=== PATIENT | female | born 1950 | race Caucasian/White ===

== ENCOUNTER 2021-09-23 02:35 | Emergency (ER) | payer MEDICARE, OTHER, SELFPAY ==
[2021-09-23 02:39] VITALS: BP 150/71; PULSE 51; RESP 16; TEMP 36.7; O2SAT 98; BMI 31.7
--- NOTE | 2021-09-23 03:06 | XRR_ITS ---
PROCEDURE INFORMATION: Exam: XR Chest Exam date and time: 09/23/2021 3:06 AM Age: 71 years old Clinical indication: Pain; On breathing; Additional info: Epigastric pain TECHNIQUE: Imaging protocol: XR of the chest. Views: 1 view. COMPARISON: No relevant prior studies available. FINDINGS: Lungs: Unremarkable. No consolidation. Pleural spaces: Unremarkable. No pleural effusion. No pneumothorax. Heart/Mediastinum: Unremarkable. No cardiomegaly. Bones/joints: Degenerative changes of the spine seen. XR/XR chest 1V portable [id number] IMPRESSION: No evidence of active cardiopulmonary disease. Radiation Dose CTDIVOL = (mGy): DLP = (mGy-cm)
--- NOTE | 2021-09-23 03:06 | ECG_ITS ---
[facility] Test Date: 2021-09-23 Pat Name: Blaire Reynoso Department: Room: Gender: Female Heel Splitter: : 1950 Requested By: Juan Alonzo Order Number: [id number] Reading MD: LIONEL SANDERS Measurements Intervals [place] Rate: 53 P: 21 [place]: 210 QRS: 6 QRSD: 99 T: 87 QT: 443 QTc: 419 Interpretive Statements SINUS BRADYCARDIA WITH FIRST DEGREE AV BLOCK INTERPRETATION BASED ON A DEFAULT AGE OF 40 YEARS No previous ECG available for comparison Electronically Signed On 09-24-2021 12:54:18 SACK FILLER by LIONEL SANDERS [id number]
--- NOTE | 2021-09-23 03:34 | W.ED.ABDPA2 ---
HPI - Abdominal Pain General: Chief Complaint: Abdominal Pain Stated Complaint: Epigastric Pain, Near Syncope Time Seen by Provider: 09/23/21 03:04 History of Present Illness: HPI narrative: 71-year-old female who awoke sometime around 1 AM with epigastric pain. She states the pain was quite intense. She then began to have tingling in her arms, and feel as if she was in a pass out. She went to the bathroom, but did not have a bowel movement. She was nauseated, but did not throw up. He continued to have pain, so her brought her to the emergency room. On the way here the pain seemed to resolve. Currently she is not symptomatic she did become diaphoretic with the pain. She was not short of breath. She has a surgical history of cholecystectomy, bowel obstruction with resection, and hysterectomy MD elicited complaint: abdominal pain Onset (ago): hour(s) Pain Consistency: now resolved Location: Epigastric Severity: severe Quality: cramping and aching Radiation: none Migration to: no migration Exacerbating factors: nothing Relieving factors: nothing Associated Symptoms: Reports nausea; Denies belching, bloating, change in stool character, constipation, diarrhea, dyspepsia, dysuria, fever(s), hematochezia and vomiting Review of Systems Const: Denies: fever(s) Card: Denies: chest pain or palpitations Resp: Denies: dyspnea, productive cough or non-productive cough GI: Reports: nausea; Denies: vomiting, diarrhea, constipation, bloating, belching, change in stool character or hematochezia : Denies: dysuria Physical Exam Const: COMMON NORMALS: no acute distress, patient oriented x3 and alert GENERAL APPEARANCE: cooperative HENMT: COMMON NORMALS: normocephalic HEAD & SCALP: normocephalic Eye: COMMON NORMALS: Equal, round and reactive pupils present PUPIL: Yes Equal, round and reactive pupils present Chest: COMMONS NORMALS: normal inspection of the chest Resp: COMMON NORMALS: normal respiratory effort, No use of accessory muscles and clear to auscultation bilaterally AUSCULTATION: clear to auscultation bilaterally Cardio: COMMON NORMALS: regular rate and regular rhythm RATE: regular rate RHYTHM: regular rhythm GI: COMMON NORMALS: Normal to inspection, nondistended, normoactive bowel sounds present, Soft to palpation and non-tender PALPATION: Yes Soft to palpation Neuro: COMMON NORMALS: patient oriented x3 SENSORIUM/ORIENTATION: Yes alert Course Vital Signs: Vital signs: Vital Signs Temperature 98.0 F 09/23/21 02:39 Pulse Rate 51 L 09/23/21 02:39 Respiratory Rate 16 09/23/21 02:39 Blood Pressure 150/71 09/23/21 02:39 Pulse Oximetry 98 09/23/21 02:39 MDM - Abdominal Pain MDM Narrative: Medical decision making narrative: 71-year-old female his pain resolved prior to arrival. Her belly is nontender. Her EKG shows a normal sinus rhythm with first-degree AV block and no acute ST changes. [place] is normal. Her first troponin is 6. White blood cell count is 6. Hemoglobin 12. CMP is essentially normal. Her lipase is normal. She does not have a gallbladder chest x-ray is negative. With resolution of her symptoms, she will be allowed home. She had pain for 2 to 3 hours prior to arrival, so she should have an elevation in her troponin if this was an atypical angina type presentation. Lab Data: Labs: Lab Results 09/23/21 09/23/21 09/23/21 03:04 03:04 03:04 WBC 6.2 10^3/uL 10^3/ uL (4.0-10.0) RBC 3.99 10^6/uL L 10 ^6/uL (4.1-5.3) Hgb 12.1 g/dL g/dL (11.5-15.3) Hct 38.4 % % (37.0-47.0) MCV 96.2 fl fl (81-99) MCH 30.3 pg pg (28.0-34.0) MCHC 31.5 g/dL g/dL (30.0-36.0) RDW 12.9 % % (12.1-15.1) Plt Count 172 10^3/cmm 10^3 /cmm (130-400) MPV 10.4 fL fL (7.4-10.4) Neut % (Auto) 39.3 % % Lymph % (Auto) 50.1 % % [place] % (Auto) 6.3 % % Eos % (Auto) 3.0 % % Baso % (Auto) 0.8 % % Neut # (Auto) 2.45 10^3/uL 10^3 /uL (1.8-7.7) Lymph # (Auto) 3.1 10^3/uL 10^3/ uL (0.8-4.8) [place] # (Auto) 0.4 10^3/uL 10^3/ uL (0.2-0.9) Eos # (Auto) 0.2 10^3/uL 10^3/ uL (0.0-0.8) Baso # (Auto) 0.1 10^3/uL 10^3/ uL (0.0-0.1) Nucleated RBC % (a uto) 0 % % Nucleated RBCs # 0.0 /100WBC /100W BC Sodium 142 mmol/L mmol/L (136-145) Potassium 3.7 mmol/L mmol/L (3.5-5.1) Chloride 106 mmol/L mmol/L (98-107) Carbon Dioxide 23 mmol/L mmol/L (22-29) Anion Gap 16.7 (5-19) BUN 19 mg/dL mg/dL (8-23) Creatinine 0.8 mg/dL mg/dL (0.5-0.9) GFR Calculation Not Reportable Glucose 104 mg/dL mg/dL (65-115) Calculated Osmolal ity 297 mOsm/kg H mOs m/kg (285-295) Calcium 8.8 mg/dL mg/dL (8.5-10.5) Total Bilirubin 0.2 mg/dL mg/dL (0.15-1.2) AST 19 U/L U/L (0-32) ALT 9 U/L U/L (0-33) Alkaline Phosphata se 96 IU/L IU/L (35-105) Troponin T Baselin e 6 ng/L ng/L (0-10) NT-Pro-B Natriuret Pep 91 pg/mL pg/mL (0-125) Total Protein 6.1 g/dL L g/dL (6.6-8.7) Albumin 4.2 g/dL g/dL (3.5-5.2) Globulin 1.9 g/dL g/dL (1.3-4.6) Lipase 30 U/L U/L (13-60) Discharge Plan Discharge Patient Disposition: Home Clinical Impression: Abdominal pain Qualifiers: Abdominal location: epigastric Qualified Code(s): R10.13 - Epigastric pain Condition: Stable Prescriptions: New Prevacid 30 mg capsule,delayed release(DR/EC) 30 mg PO DAILY Qty: 30 RF: 0 Discharge Orders: Discharge ED (Routine); Ordered 09/23/21 Ordered By: Juan Rodriguez Referrals: Teodora Frank FNP [Primary Care Provider] - 4-7 days Discharge Diet: Advance as tolerated and Clear Liquid Discharge Activity: Increase activity as tolerated Patient Instructions: Abdominal Pain (ED), Opioid Safety Activity Restrictions/Additional Instructions: Return for return of discomfort or pain, fever greater than 100, vomiting liquids or medications, blood in the stool, shortness of breath, any other concerning symptoms. Coding Level of Care Code ED Sterilization Specialist for Chg Fwd Exam Detailed
[2021-09-23 03:37] LABS: Basophils # 0.1 10^3/uL (0.0-0.1); Basophils % 0.8 %; Eosinophils # 0.2 10^3/uL (0.0-0.8); Hematocrit 38.4 % (37.0-47.0); Hemoglobin 12.1 g/dL (11.5-15.3); Lymphocytes # 3.1 10^3/uL (0.8-4.8); Lymphocytes % 50.1 %; Mean Corpuscular HGB Conc 31.5 g/dL (30.0-36.0); Mean Corpuscular Hemoglobin 30.3 pg (28.0-34.0); Mean Corpuscular Volume 96.2 fl (81-99); Mean Platelet Volume 10.4 fL (7.4-10.4); Monocytes # 0.4 10^3/uL (0.2-0.9); Monocytes % 6.3 %; Neutrophils # 2.45 10^3/uL (1.8-7.7); Neutrophils % 39.3 %; Nucleated Red Blood Cells % 0 %; Platelet Count 172 10^3/cmm (130-400); Red Blood Count 3.99 10^6/uL (4.1-5.3); Red Cell Distribution Width 12.9 % (12.1-15.1); White Blood Count 6.2 10^3/uL (4.0-10.0)
[2021-09-23 04:04] LABS: Troponin(5th) Baseline 6 ng/L (0-10)
[2021-09-23 04:14] LABS: Alanine Aminotransferase 9 U/L (0-33); Albumin Level 4.2 g/dL (3.5-5.2); Alkaline Phosphatase 96 IU/L (35-105); Anion Gap 16.7 (5-19); Aspartate Amino Transferase 19 U/L (0-32); Blood Urea Nitrogen 19 mg/dL (8-23); Calcium 8.8 mg/dL (8.5-10.5); Carbon Dioxide 23 mmol/L (22-29); Chloride 106 mmol/L (98-107); Creatinine Clr Calc Pharmacy 67.5962; Globulin 1.9 g/dL (1.3-4.6); Glucose 104 mg/dL (65-115); Lipase 30 U/L (13-60); NT Pro B Type Natriuretic Pept 91 pg/mL (0-125); Osmolality Calculated 297 mOsm/kg (285-295); Potassium 3.7 mmol/L (3.5-5.1); Sodium 142 mmol/L (136-145); Total Bilirubin 0.2 mg/dL (0.15-1.2); Total Protein 6.1 g/dL (6.6-8.7)
== END 2021-09-23 04:46 | disposition home or self-care (01) ==
PROVIDERS: Emergency Provider Emergency Medicine; PCP Nurse Practitioner Family
DX: R10.13 Epigastric pain (principal)
CPT/HCPCS: 71045; 80053; 83690; 83880; 84484; 85025; 93005; 99283

== ENCOUNTER 2022-11-14 10:35 | Outpatient (CLI) | payer MEDICARE, OTHER, SELFPAY ==
--- NOTE | 2022-11-14 10:56 | MM_ITS ---
WS: [id number] BILATERAL SCREENING DIGITAL TOMOSYNTHESIS MAMMOGRAM WITH CAD HISTORY: SCREENING COMPARISON: 05/30/2021, 04/13/2020 Bilateral CC and MLO views with tomosynthesis and synthetic mammography submitted. Computer aided det ection analyzed. Breast composition: There are scattered areas of fibroglandular density. No suspicious masses, microc alcifications or architectural distortion. Scattered asymmetries within each breast. Degenerative kellie cified fibroadenoma 12:00 anterior RIGHT breast. MM/[place] [id number] IMPRESSION: BI-RADS: 2-Benign FOLLOW UP: 1 Year Follow-up
== END 2022-11-14 10:36 | disposition home or self-care (01) ==
LOC: RAD 10:46
PROVIDERS: PCP Nurse Practitioner Family; Visit Provider General Practice
DX: Z12.31 Encounter for screening mammogram for malignant neoplasm of breast (principal)
CPT/HCPCS: 77063; 77067

== ENCOUNTER → 2023-12-30 13:55 | Outpatient (BNVA) | payer MEDICARE, OTHER, SELFPAY | PROVIDERS: PCP Nurse Practitioner Family; Visit Provider Surgery | DX: R10.9 Unspecified abdominal pain (principal); G89.29 Other chronic pain | CPT/HCPCS: 99204 ==

== ENCOUNTER → 2024-01-07 10:46 | Outpatient (BNVA) | payer MEDICARE, OTHER, SELFPAY | PROVIDERS: PCP Nurse Practitioner Family; Visit Provider Surgery | DX: R10.9 Unspecified abdominal pain (principal); G89.29 Other chronic pain | CPT/HCPCS: 83630; 83993 ==

== ENCOUNTER → 2024-01-07 13:29 | Outpatient (BNVA) | payer MEDICARE, OTHER, SELFPAY | PROVIDERS: PCP Nurse Practitioner Family; Visit Provider Nurse Practitioner Family | DX: R00.2 Palpitations (principal) | CPT/HCPCS: 93005 ==

== ENCOUNTER 2024-01-13 16:34 | Outpatient (CLI) | payer MEDICARE, OTHER, SELFPAY ==
--- NOTE | 2024-01-13 17:00 | CTR_ITS ---
PROCEDURE INFORMATION: Exam: CT Abdomen And Pelvis With Contrast Exam date and time: 01/13/2024 5:38 PM Age: 73 years old Clinical indication: Constipation; Abdominal pain; Generalized; Prior surgery; Surgery date: 6+ months; Surgery type: Hyst, gb, colon; Additional info: Chronic abdominal pain, iv/po TECHNIQUE: Imaging protocol: Computed tomography of the abdomen and pelvis with contrast. Radiation optimization: All CT scans at this facility use at least one of these dose optimization techniques: automated exposure control; mA and/or kV adjustment per patient size (includes targeted exams where dose is matched to clinical indication); or iterative reconstruction. Contrast material: OMNI 350; Contrast volume: 100 ml; Contrast route: INTRAVENOUS (IV); COMPARISON: CR XR chest 1V portable [id number] 09/23/2021 4:08 AM RADIATION DOSE METRICS: Total DLP (mGy-cm): 495.09 FINDINGS: Lungs: Lung bases are clear. No pleural effusion. Liver: Normal. No mass. Gallbladder and bile ducts: The gallbladder has been resected. Pancreas: Normal. No ductal dilation. Spleen: Normal. No splenomegaly. Adrenal glands: Normal. No mass. Kidneys and ureters: Normal. No hydronephrosis. Stomach and bowel: There are several scattered diverticula throughout much of the colon. Appendix: No evidence of appendicitis. Intraperitoneal space: Unremarkable. No free air. No significant fluid collection. Vasculature: Unremarkable. No abdominal aortic aneurysm. Lymph nodes: Unremarkable. No enlarged lymph nodes. Urinary bladder: Unremarkable as visualized. Reproductive: Unremarkable as visualized. Bones/joints: The lumbar spine demonstrates prominent multilevel arthritic change. Soft tissues: Unremarkable. CT/CT abdomen pelvis w con* [id number] IMPRESSION: 1. No acute findings. 2. Mild colonic diverticulosis
[2024-01-13] MEDS: iohexol 350 mg/mL 500 mL Btl (per mL) PO (17:42)
[2024-01-13] MEDS: iohexol 350 mg/mL 500 mL Btl (per mL) IV (17:42)
== END 2024-01-13 16:35 | disposition home or self-care (01) ==
LOC: RAD 16:34
PROVIDERS: PCP Nurse Practitioner Family; Visit Provider Surgery
DX: R10.9 Unspecified abdominal pain (principal); G89.29 Other chronic pain; K57.90 Diverticulosis of intestine, part unspecified, without perforation or abscess without bleeding; K59.00 Constipation, unspecified; Z90.49 Acquired absence of other specified parts of digestive tract
CPT/HCPCS: 74177; Q9967

== ENCOUNTER → 2024-01-28 10:25 | Outpatient (BNVA) | payer MEDICARE, OTHER, SELFPAY | PROVIDERS: PCP Nurse Practitioner Family; Visit Provider Surgery | DX: Z09 Encounter for follow-up examination after completed treatment for conditions other than malignant neoplasm (principal) | CPT/HCPCS: 99213 ==

== ENCOUNTER → 2024-03-02 11:44 | Outpatient (BNVA) | payer MEDICARE, OTHER, SELFPAY | PROVIDERS: PCP Nurse Practitioner Family; Visit Provider Nurse Practitioner Family | DX: R00.2 Palpitations (principal) | CPT/HCPCS: 84439; 84443 ==

== ENCOUNTER → 2024-06-08 13:29 | Outpatient (BNVA) | payer MEDICARE, OTHER, SELFPAY | PROVIDERS: PCP Nurse Practitioner Family; Referring Provider Nurse Practitioner Family; Visit Provider Internal Medicine Cardiovascular Disease | DX: R07.9 Chest pain, unspecified (principal); R00.2 Palpitations; R10.9 Unspecified abdominal pain; G89.29 Other chronic pain; I10 Essential (primary) hypertension; Z87.891 Personal history of nicotine dependence | CPT/HCPCS: 93005; 99214 ==

== ENCOUNTER → 2024-06-15 09:10 | Outpatient (BNVA) | payer MEDICARE, OTHER, SELFPAY | PROVIDERS: PCP Nurse Practitioner Family; Visit Provider Nurse Practitioner Family | DX: N39.0 Urinary tract infection, site not specified (principal) | CPT/HCPCS: 87086 ==

== ENCOUNTER → 2024-07-05 13:37 | Outpatient (BNVA) | payer MEDICARE, OTHER, SELFPAY | PROVIDERS: PCP Nurse Practitioner Family; Visit Provider Nurse Practitioner Family | DX: N39.0 Urinary tract infection, site not specified (principal) | CPT/HCPCS: 81000 ==

== ENCOUNTER → 2024-07-12 08:42 | Outpatient (BNVA) | payer MEDICARE, OTHER, SELFPAY | PROVIDERS: PCP Nurse Practitioner Family; Visit Provider Podiatrist Foot & Ankle Surgery | DX: D21.9 Benign neoplasm of connective and other soft tissue, unspecified | CPT/HCPCS: 73630; 99203 ==

== ENCOUNTER → 2024-07-15 07:54 | Outpatient (BNVA) | payer MEDICARE, OTHER, SELFPAY | PROVIDERS: PCP Nurse Practitioner Family; Referring Provider Nurse Practitioner Family; Visit Provider Nurse Practitioner Family | DX: D48.5 Neoplasm of uncertain behavior of skin (principal); L82.0 Inflamed seborrheic keratosis; D18.01 Hemangioma of skin and subcutaneous tissue; L57.8 Other skin changes due to chronic exposure to nonionizing radiation; L81.4 Other melanin hyperpigmentation | CPT/HCPCS: 11102; 17110; 99203 ==

== ENCOUNTER → 2024-12-02 11:29 | Outpatient (BNVA) | payer MEDICARE, OTHER, SELFPAY | PROVIDERS: PCP Nurse Practitioner Family; Visit Provider Nurse Practitioner Family | DX: R53.83 Other fatigue (principal); I10 Essential (primary) hypertension | CPT/HCPCS: 80053; 80061; 85025 ==

== ENCOUNTER 2024-12-30 12:57 | Outpatient (CLI) | payer MEDICARE, OTHER, SELFPAY ==
--- NOTE | 2024-12-30 13:00 | XR_ITS ---
WS: [id number] XR knee RT 3V* [id number] REASON FOR EXAM: M25.561 - Pain in right knee FINDINGS: No fracture or focal bone lesion. Minimal narrowing of the medial knee joint space with mild subchondral sclerosis and osteophytosis. Minimal narrowing of the lateral knee joint space with mild subchondral sclerosis and osteophytosis. Possible joint effusion. Patellofemoral joint space is intact. Mild subchondral sclerosis and osteophytosis at the patella. XR/XR knee RT 3V* [id number] IMPRESSION: Mild osteoarthritis of the right knee as above.
== END 2024-12-30 12:58 | disposition home or self-care (01) ==
LOC: RAD 13:00
PROVIDERS: PCP Nurse Practitioner Family; Visit Provider Nurse Practitioner Family
DX: M17.11 Unilateral primary osteoarthritis, right knee (principal); M25.761 Osteophyte, right knee; R93.6 Abnormal findings on diagnostic imaging of limbs
CPT/HCPCS: 73562

== ENCOUNTER 2025-01-02 16:09 | Inpatient (IN) | payer MEDICARE, OTHER, SELFPAY ==
[2025-01-02 16:14] VITALS: BP 127/75; PULSE 105; RESP 16; TEMP 36.4; O2SAT 97; BMI 31.7
[2025-01-02 18:45] LABS: Basophils % 0.4 %; Eosinophils % 0.6 %; Hematocrit 43.6 % (36-47); Lymphocytes # 1.7 10^3/uL (0.8-4.8); Lymphocytes % 24.2 %; Mean Corpuscular HGB Conc 30.7 g/dL (30-55); Mean Corpuscular Hemoglobin 29.5 pg (27-33); Mean Platelet Volume 10.2 fL (7.4-10.4); Monocytes # 0.5 10^3/uL (0.2-0.9); Monocytes % 6.7 %; Neutrophils # 4.61 10^3/uL (1.8-7.7); Neutrophils % 67.7 %; Nucleated Red Blood Cells % 0 %; Platelet Count 164 10^3/cmm (157-399); Red Blood Count 4.54 10^6/uL (3.85-5.65); Red Cell Distribution Width 13.4 % (12.1-15.1); White Blood Count 6.82 10^3/uL (3.29-11.43)
[2025-01-02 19:05] LABS: Alanine Aminotransferase 8 U/L (0-33); Albumin Level 4.1 g/dL (3.5-5.2); Alkaline Phosphatase 101 U/L (35-105); Aspartate Amino Transferase 19 U/L (0-32); Blood Urea Nitrogen 22 mg/dL (8-23); C Reactive Protein 32.6 mg/L (0.0-4.9); Calcium 9.5 mg/dL (8.5-10.5); Carbon Dioxide 23 mmol/L (22-29); Chloride 104 mmol/L (98-107); Globulin 3.2 g/dL (1.3-4.6); Glucose 97 mg/dL (65-115); Lipase 12 U/L (13-60); Osmolality Calculated 293 mOsm/kg (285-295); Sodium 140 mmol/L (136-145); Total Bilirubin 0.6 mg/dL (0.15-1.2); Total Protein 7.3 g/dL (6.6-8.7)
[2025-01-02 19:06] LABS: Lactic Sepsis W/Reflex 0.9 mmol/L (0.5-2.2)
[2025-01-02 19:09] VITALS: BP 143/84; PULSE 81; O2SAT 97
[2025-01-02 19:21] LABS: Bilirubin Urine 2+ (Negative); Blood Urine Negative (Negative); Glucose Urine UA Negative (Normal); Ketones Urine 1+ (Negative); Leukocyte Esterase Urine 1+ (Negative); Nitrate Urine Negative (Negative); Protein Urine 1+ (Negative); Urine Appearance Cloudy (CLEAR); Urine Color Dark Yellow (Yellow)
[2025-01-02 19:22] LABS: Specific Gravity, Urine 1.035 (1.005-1.030)
[2025-01-02 19:24] LABS: Add Urine Microscopic? YES; Bacteria Urine None Seen /hpf; Hyaline Casts Urine 64.96 /lpf; RBC Urine 0-2 /hpf (0-2); Universal Test for UA Present (0); WBC Urine 0-5 /hpf (0-5)
[2025-01-02 19:32] LABS: Add Urine Culture? No; Mucus Urine 3+ /hpf
--- NOTE | 2025-01-02 19:35 | XRR_ITS ---
PROCEDURE INFORMATION: Exam: XR Complete Acute Abdomen Series Including Chest Exam date and time: 01/02/2025 7:49 PM Age: 74 years old Clinical indication: Constipation; Prior surgery; Surgery date: 6+ months; Surgery type: Gallbladder; Hysterectomy; Bowel; HX of sbo TECHNIQUE: Imaging protocol: Radiologic exam. Complete acute abdomen series, including 2 or more views of the abdomen and a single view chest. COMPARISON: CT abdomen pelvis w con* [id number] 01/13/2024 5:38 PM FINDINGS: Lungs: Mild left basilar atelectasis. No focal consolidation. Pleural spaces: No significant pleural effusion. No pneumothorax. Heart/Mediastinum: The cardiomediastinal silhouette is stable and within normal limits. Gastrointestinal tract: Scattered distended loops of small bowel measuring up to 4 cm in the mid abdomen. No pneumatosis. Small amount of stool within the large bowel. Gas is seen within the rectum. Intraperitoneal space: No intraperitoneal free air. Organs: Clips in the right upper quadrant likely from prior cholecystectomy. Vasculature: Tortuosity of the descending thoracic aorta. Bones/joints: Degenerative changes of the thoracolumbar spine. No acute fracture. Soft tissues: Normal. XR/XR acute abdomen series [id number] IMPRESSION: 1. Findings suggestive of partial small bowel obstruction versus small bowel ileus. Recommend further evaluation with CT as clinically indicated. 2. No acute cardiopulmonary abnormality.
--- NOTE | 2025-01-02 20:20 | CTR_ITS ---
PROCEDURE INFORMATION: Exam: CT Abdomen And Pelvis Without Contrast Exam date and time: 01/02/2025 7:56 PM Age: 74 years old Clinical indication: Abdominal pain; Generalized; Prior surgery; Surgery date: 6+ months; Surgery type: Gb. Hysterectomy; C/O diffuse abd pain with constipation x 3 days. Possible developing sbo noted on plain films. History of sbo. TECHNIQUE: Imaging protocol: Computed tomography of the abdomen and pelvis without contrast. Radiation optimization: All CT scans at this facility use at least one of these dose optimization techniques: automated exposure control; mA and/or kV adjustment per patient size (includes targeted exams where dose is matched to clinical indication); or iterative reconstruction. COMPARISON: CT abdomen pelvis w con* [id number] 01/13/2024 5:38 PM RADIATION DOSE METRICS: Total DLP (mGy-cm): 732.82 FINDINGS: Lungs: Mild bibasilar atelectasis. Liver: Normal. No mass. Gallbladder and biliary ducts: Status post cholecystectomy. Pancreas: Normal. No ductal dilation. Spleen: Normal. No splenomegaly. Adrenal glands: Nodular thickening of the left adrenal gland. The right adrenal gland is unremarkable. Kidneys and ureters: Normal. No hydronephrosis. Stomach and bowel: Colonic diverticulosis without evidence to suggest acute diverticulitis. Multiple dilated loops of small bowel with air-fluid levels measuring up to 3.5 cm in the mid abdomen with point of transition likely in the pelvis seen on series 3, image 62. Additional focal area of tapering noted in the right lower quadrant in the region of the distal ileum (3/55). There is stool and air noted within the large bowel however appears mildly underdistended/collapsed. Appendix: The appendix is not definitively visualized however there are no secondary signs to suggest acute appendicitis. Intraperitoneal space: No intraperitoneal free air. Small amount pelvic free fluid. Vasculature: Mild aortoiliac atherosclerosis. Lymph nodes: Unremarkable. No enlarged lymph nodes. Urinary bladder: Unremarkable as visualized. Reproductive: Unremarkable as visualized. Bones/joints: Moderate to severe multilevel degenerative disease of the thoracolumbar spine. Exaggerated kyphosis of the lumbar spine. Multilevel degenerative disc disease with associated vacuum phenomenon. Soft tissues: Small fat containing umbilical hernia. CT/CT abdomen pelvis wo con [id number] IMPRESSION: 1. Findings compatible with small bowel obstruction with probable point of transition noted within the pelvis/right lower quadrant as described above. No evidence of pneumatosis or intraperitoneal free air to suggest perforation. 2. Other findings as described in the body of the report.
[2025-01-02 22:00] VITALS: BP 135/68; PULSE 82; O2SAT 96
[2025-01-02] MEDS: ondansetron 2 mg/ML SDV 2 mL 4 MG IVP (22:09)
[2025-01-02 22:16] VITALS: RESP 18; O2SAT 94
[2025-01-02] MEDS: morphine 4 mg/mL SDV 1 mL IVP (22:16)
--- NOTE | 2025-01-02 22:22 | P.HP_ITS ---
Providers/Chief Complaint 2 Primary Care Provider: CHARLEY De La Cruz Chief Complaint: constipation History of Present Illness Blaire Reynoso is a 74 year old female with history of cholecystectomy, hysterectomy, SBO in the past, presented with chief complaint abdominal discomfort and nausea. Patient stating that her symptoms started on , she took a lot of laxatives, today she had 1 small bowel movement, she has not experienced any fever, vomiting, chest pain or shortness of breath. Secondary to worsening abdominal pain and nausea she came to the hospital for further evaluation. Workup is consistent with bowel obstruction. She is clinically dry, hemodynamic stable I have requested an NG tube to low intermittent suction General Surgery consulted and notified by the ER physician CBC BMP unremarkable other than TERRI Review of Systems 2 Const: Denies: fever(s) Eyes: Denies: change in vision ENMT: Denies: throat pain Card: Denies: chest pain GI: Reports: abdominal pain and nausea Medications/Allergies Home Medications ?Medication ?Instructions ?Recorded ?Confirmed ?Last Taken ?Type naproxen 500 mg tablet 500 mg PO BID PRN 12/30/23 0 12/09/24 Unknown History magnesium oxide 400 mg (241.3 mg 400 mg PO DAILY #90 t abs 06/08/24 12/09/24 Unknown Rx magnesium) tablet lidocaine 5 % topical patch 1 patch topical DAILY #30 ea 07/12/24 12/09/24 Unknown Rx duloxetine 40 mg capsule,delayed 40 mg PO DAILY #90 ca ps 12/02/24 12/09/24 Unknown Rx release hydroxyzine HCl 25 mg tablet 25 mg PO BID PRN itching #60 tabs 12/02/24 12/09/24 Unknown Rx metoprolol succinate 25 mg 12.5 mg (1/2 x 25 mg) PO DA VIOLETA #45 12/02/24 12/09/24 Unknown Rx tablet,extended release 24 hr tabs omeprazole 40 mg capsule,delayed 40 mg PO DAILY #30 ca ps 12/02/24 12/09/24 Unknown Rx release Allergies Allergy/AdvReac Type Severity Reaction Status Date / Time fluoxetine (From Prozac) Allergy ALGY-Rash Verified 12/09/24 08:49 PFSH Acute 2 PFSH: Medical History Essential hypertension Surgical History Hx of exploratory laparotomy Hx of hysterectomy History of esophagogastroduodenoscopy (EGD) x3 Hx of colonoscopy with polypectomy 1st colonoscopy positive polyp 2nd no polyps Hx of cholecystectomy Family History Sister Diabetes Father Cancer melanona Grandmother Cancer stomach cancer Other History of esophagogastroduodenoscopy (EGD) Hx of cholecystectomy Hx of colonoscopy with polypectomy Hx of exploratory laparotomy Hx of hysterectomy Social History Smoking and tobacco/nicotine status: former use of tobacco/nicotine Alcohol intake: former Substance/Drug Use: never Vitals/I&O/Wt Last Vital Signs Temp 97.5 F L 01/02/25 16:14 Pulse 82 01/02/25 22:00 Resp 18 01/02/25 22:16 BP 135/68 01/02/25 22:00 Pulse Ox 94 01/02/25 22:16 O2 Del Method Room Air 01/02/25 19:09 Weight last 48 hrs Weight 83.915 kg Physical Exam 2 Narrative: Distended abdomen No active signs of peritonitis GCS 15 Clinical signs of dehydration No active sign of fluid overload S1, S2 Currently on room air Hemodynamic stable AOx4 GCS 15 Data 01/02/25 18:39 01/02/25 18:39 A&P Assessment and plan (1) Essential hypertension: (2) Palpitation: (3) GERD (gastroesophageal reflux disease): Qualifiers: Esophagitis presence: without esophagitis Qualified Code(s): K21.9 - Gastro-esophageal reflux disease without esophagitis (4) SBO (small bowel obstruction): (5) Dehydration: (6) TERRI (acute kidney injury): Plan Bowel obstruction NG to low intermittent suction N.p.o. Start IV fluids No signs of peritonitis No need of IV antibiotics Add Protonix Patient has history of cholecystectomy, hysterectomy, 2 episodes of SBO in the past Clinical signs of dehydration with TERRI Start IV fluids anticipate improvement with IV fluid hydration Hypertension: Will do IV antibiotic regimen on as-needed basis Opiates: Morphine on as-needed basis N.p.o. DVT prophylaxis: Heparin GI prophylaxis Protonix Full code Lives with her As per the patient: Colonoscopy was unremarkable no concern for malignancy as per the patient PDMP PDMP Reviewed: Not Reviewed Attestations 2 Medical Necessity Statement*: More than 2 midnights anticipated for management of SBO Diagnoses Essential hypertension I10 Palpitation R00.2 Gastroesophageal reflux disease without esophagitis K21.9 Esophagitis presence: without esophagitis SBO (small bowel obstruction) K56.609 Dehydration E86.0 TERRI (acute kidney injury) N17.9
--- NOTE | 2025-01-02 22:31 | ED_ITS ---
HPI - Abdominal Pain 2 General: Chief Complaint: Abdominal Pain Stated Complaint: constipation Time Seen by Provider: 01/02/25 19:00 History of Present Illness: This patient is a 74-year-old white female who presents to the emergency department complaining of generalized abdominal pain. She states the pain started on Friday. She states she has had similar symptoms many times over the years. Patient has had partial small bowel obstructions in the past. She thought maybe she was constipated this time and tried some laxatives. She did have 1 loose stool this morning. She has not had a fever. No nausea or vomiting. Past surgical history includes a hysterectomy, cholecystectomy, and exploratory laparotomy. Related Data Home Medications ?Medication ?Instructions ?Recorded ?Confirmed naproxen 500 mg tablet 500 mg PO BID PRN 12/30/23 0 12/09/24 Previous Rx's ?Medication ?Instructions ?Recorded magnesium oxide 400 mg (241.3 mg 400 mg PO DAILY #90 t abs 06/08/24 magnesium) tablet lidocaine 5 % topical patch 1 patch topical DAILY #30 ea 07/12/24 duloxetine 40 mg capsule,delayed 40 mg PO DAILY #90 ca ps 12/02/24 release hydroxyzine HCl 25 mg tablet 25 mg PO BID PRN itching #60 tabs 12/02/24 metoprolol succinate 25 mg 12.5 mg (1/2 x 25 mg) PO DA VIOLETA #45 12/02/24 tablet,extended release 24 hr tabs omeprazole 40 mg capsule,delayed 40 mg PO DAILY #30 ca ps 12/02/24 release Allergies Allergy/AdvReac Type Severity Reaction Status Date / Time fluoxetine (From Prozac) Allergy ALGY-Rash Verified 12/09/24 08:49 Review of Systems 2 General: Reports: 10 or more systems reviewed and unremarkable except in HPI and below GI: Reports: abdominal pain PFSH ED 2 PFSH: Medical History Essential hypertension Surgical History Hx of exploratory laparotomy Hx of hysterectomy History of esophagogastroduodenoscopy (EGD) x3 Hx of colonoscopy with polypectomy 1st colonoscopy positive polyp 2nd no polyps Hx of cholecystectomy Family History Sister Diabetes Father Cancer melanona Grandmother Cancer stomach cancer Other History of esophagogastroduodenoscopy (EGD) Hx of cholecystectomy Hx of colonoscopy with polypectomy Hx of exploratory laparotomy Hx of hysterectomy Social History Smoking and tobacco/nicotine status: former use of tobacco/nicotine Alcohol intake: former Substance/Drug Use: never Physical Exam 2 Const: COMMON NORMALS: patient oriented x3 and no limitations GENERAL APPEARANCE: cooperative and comfortable HENMT: COMMON NORMALS: normocephalic, atraumatic, Normal nasal mucous membranes and turbinates present, moist oral mucous membranes and oropharynx normal HEAD & SCALP: normal to inspection, normocephalic and atraumatic F MICHAEL & SINUS: normal facial exam NOSE: Normal nasal mucous membranes and turbinates present Eye: COMMON NORMALS: Equal, round and reactive pupils present, EOMs intact bilaterally and conjunctivae normal GENERAL EYE: appearance normal, both eyes and all related structures CONJUNCTIVA: Yes conjunctivae normal PUPIL: Yes Equal, round and reactive pupils present Neck/C-Spine: COMMON NORMALS: supple and no JVD Chest: COMMONS NORMALS: normal inspection of the chest Resp: COMMON NORMALS: normal respiratory effort and clear to auscultation bilaterally AUSCULTATION: clear to auscultation bilaterally Cardio: COMMON NORMALS: no JVD, regular rate, regular rhythm, No gallops present (Cardio), No murmurs present (Cardio) and No rub (Cardio) RATE: r egular rate RHYTHM: regular rhythm GI: COMMON NORMALS: Normal to inspection, nondistended, normoactive bowel sounds present AUSCULTATION: Yes normoactive bowel sounds PALPATION: Yes Tenderness to palpation present (GI) : COMMON NORMALS: Yes no CVA tenderness BLADDER/KIDNEY EXAM: Yes no CVA tenderness Back/Pelvis: COMMON NORMALS: no CVA tenderness and thoracic and lumbar spine normal to inspection Extremity: COMMON NORMALS: normal to inspection Neuro: COMMON NORMALS: patient oriented x3 and CN's II-XII intact bilaterally Psych: COMMON NORMALS: mental status grossly normal, Normal thought process present and cooperative THOUGHT PROCESS: Normal thought process present Skin: COMMON NORMALS: no rashes or lesions noted, turgor normal and no jaundice GENERAL SKIN EXAM: no rashes or lesions noted and turgor normal Course 2 Vital Signs: Vital signs: Vital Signs Temperature 97.5 F L 01/02/25 16:14 Pulse Rate 82 01/02/25 22:00 Respiratory Rate 18 01/02/25 22:16 Blood Pressure 135/68 01/02/25 22:00 Pulse Oximetry 94 01/02/25 22:16 Oxygen Delivery Me thod Room Air 01/02/25 19:09 MDM - Abdominal Pain Medical Decision Making CBC and CMP were normal. Lactic acid 0.9. Lipase 12. Plain abdominal films revealed dilated loops of small bowel consistent with possible small bowel obstruction. CT scan of the abdomen pelvis was read by the radiologist. There is a partial small bowel obstruction. No sharp transition point. Patient was given some morphine for her pain. Patient will need to be admitted. I discussed the case with the general surgeon. He would like the patient admitted to the hospitalist service and he will be the customer care voice consultant. I then discussed the case with Dr. Herrera. He did accept the admission. Patient will be transferred to the floor shortly. She is stable. NG tube will be placed by nursing staff here in the emergency department. Lab Data 01/02/25 18:39 01/02/25 18:39 Labs/Radiology: Radiology Impressions Chest/Abdomen X-ray 01/02/25 19:35 IMPRESSION: 1. Findings suggestive of partial small bowel obstruction versus small bowel ileus. Recommend further evaluation with CT as clinically indicated. 2. No acute cardiopulmonary abnormality. ADDENDUM: 01/02/[id number] COMMENT: THIS REPORT CONTAINS FINDINGS THAT MAY BE CRITICAL TO PATIENT CARE. The exam findings were verbally communicated by me to KANDY BEAVER via telephone conference at 8:49 PM CDT on 01/02/2025. The findings were acknowledged and understood. Abdomen/Pelvis CT 01/02/25 20:20 IMPRESSION: 1. Findings compatible with small bowel obstruction with probable point of transition noted within the pelvis/right lower quadrant as described above. No evidence of pneumatosis or intraperitoneal free air to suggest perforation. 2. Other findings as described in the body of the report. ADDENDUM: 01/02/[id number] COMMENT: THIS REPORT CONTAINS FINDINGS THAT MAY BE CRITICAL TO PATIENT CARE. The exam findings were verbally communicated by me to KANDY BEAVER via telephone conference at 9:37 PM CDT on 01/02/2025. The findings were acknowledged and understood. Laboratory Results WBC 6.82 10^3/uL (3.29-11.43) 01/02/25 18:39 RBC 4.54 10^6/uL (3.85-5.65) 01/02/25 18:39 Hgb 13.40 g/dL (11.27-16.99) 01/02/25 18:39 Hct 43.6 % (36-47) 01/02/25 18:39 MCV 96.0 fl (85-98) 01/02/25 18:39 MCH 29.5 pg (27-33) 01/02/25 18:39 MCHC 30.7 g/dL (30-55) 01/02/25 18:39 RDW 13.4 % (12.1-15.1) 01/02/25 18:39 Plt Count 164 10^3/cmm (157-399) 01/02/25 18:39 MPV 10.2 fL (7.4-10.4) 01/02/25 18:39 Neut % (Auto) 67.7 % 01/02/25 18:39 Lymph % (Auto) 24.2 % 01/02/25 18:39 Sanders % (Auto) 6.7 % 01/02/25 18:39 Eos % (Auto) 0.6 % 01/02/25 18:39 Baso % (Auto) 0.4 % 01/02/25 18:39 Neut # (Auto) 4.61 10^3/uL (1.8-7.7) 01/02/25 18:39 Lymph # (Auto) 1.7 10^3/uL (0.8-4.8) 01/02/25 18:39 Sanders # (Auto) 0.5 10^3/uL (0.2-0.9) 01/02/25 18:39 Eos # (Auto) 0.0 10^3/uL (0.0-0.8) 01/02/25 18:39 Baso # (Auto) 0.0 10^3/uL (0.0-0.1) 01/02/25 18:39 Nucleated RBC % (auto) 0 % 01/02/25 18:39 Nucleated RBCs # 0.0 /100WBC 01/02/25 18:39 Sodium 140 mmol/L (136-145) 01/02/25 18:39 Potassium 4.0 mmol/L (3.5-5.1) 01/02/25 18:39 Chloride 104 mmol/L (98-107) 01/02/25 18:39 Carbon Dioxide 23 mmol/L (22-29) 01/02/25 18:39 Anion Gap 17.0 (5-19) 01/02/25 18:39 BUN 22 mg/dL (8-23) 01/02/25 18:39 Creatinine 1.3 mg/dL (0.5-0.9) H 01/02/25 18:39 GFR Calculation Not Reportable 01/02/25 18:39 Glucose 97 mg/dL (65-115) 01/02/25 18:39 Calculated Osmolality 293 mOsm/kg (285-295) 01/02/25 18:39 Lactic Acid 0.9 mmol/L (0.5-2.2) 01/02/25 18:39 Calcium 9.5 mg/dL (8.5-10.5) 01/02/25 18:39 Total Bilirubin 0.6 mg/dL (0.15-1.2) 01/02/25 18:39 AST 19 U/L (0-32) 01/02/25 18:39 ALT 8 U/L (0-33) 01/02/25 18:39 Alkaline Phosphatase 101 U/L (35-105) 01/02/25 18:39 C-Reactive Protein 32.6 mg/L (0.0-4.9) H 01/02/25 18:39 Total Protein 7.3 g/dL (6.6-8.7) 01/02/25 18:39 Albumin 4.1 g/dL (3.5-5.2) 01/02/25 18:39 Globulin 3.2 g/dL (1.3-4.6) 01/02/25 18:39 Lipase 12 U/L (13-60) L 01/02/25 18:39 Urine Color Dark yellow (Yellow) A 01/02/25 19:15 Urine Appearance Cloudy (CLEAR) A 01/02/25 19:15 Urine pH 5.0 (5-7) 01/02/25 19:15 Ur Specific [place] 1.035 (1.005-1.030) H 01/02/25 19:15 Urine Protein 1+ (Negative) A 01/02/25 19:15 Urine Glucose (UA) Negative (Normal) 01/02/25 19:15 Urine Ketones 1+ (Negative) H 01/02/25 19:15 Urine Blood Negative (Negative) 01/02/25 19:15 Urine Nitrate Negative (Negative) 01/02/25 19:15 Urine Bilirubin 2+ (Negative) H 01/02/25 19:15 Urine Urobilinogen 1.0 mg/dL (Negative) 01/02/25 19:15 Ur Leukocyte Esterase 1+ (Negative) A 01/02/25 19:15 Urine RBC 0-2 /hpf (0-2) 01/02/25 19:15 Urine WBC 0-5 /hpf (0-5) 01/02/25 19:15 Ur Squamous Epith Cells 6-10 /hpf (0-5) 01/02/25 19:15 Amorphous Sediment Not Reportable 01/02/25 19:15 Urine Bacteria None seen /hpf (NONE) 01/02/25 19:15 Hyaline Casts 64.96 /lpf 01/02/25 19:15 Urine Mucus 3+ /hpf 01/02/25 19:15 All radiology interpretation(s) finalized by discharge Discharge Plan Discharge Condition: Stable Prescriptions: No Action naproxen 500 mg tablet 500 mg PO BID PRN magnesium oxide 400 mg (241.3 mg magnesium) tablet 400 mg PO DAILY Qty: 90 3RF lidocaine 5 % adhesive patch,medicated 1 patch topical DAILY Qty: 30 0RF Rx Instructions: leave on most painful area for up to 12 hrs duloxetine 40 mg capsule,delayed release(DR/EC) 40 mg PO DAILY Qty: 90 0RF hydroxyzine HCl 25 mg tablet 25 mg PO BID PRN (Reason: itching) Qty: 60 0RF metoprolol succinate 25 mg tablet extended release 24 hr 12.5 mg PO DAILY Qty: 45 3RF omeprazole 40 mg capsule,delayed release(DR/EC) 40 mg PO DAILY Qty: 30 0RF Referrals: Teodora Frank FNP [Primary Care Provider] - Print Language: Tajik Coding Level of Care Code ED [employer] for [facility]
--- NOTE | 2025-01-02 23:00 | XRR_ITS ---
PROCEDURE INFORMATION: Exam: XR Chest Exam date and time: 01/02/2025 11:01 PM Age: 74 years old Clinical indication: Device placement; Prior surgery; Surgery date: 6+ months; Surgery type: Hysterectomy, gb, exploratory lap; Ng tube confirmation; Additional info: Ng placement TECHNIQUE: Imaging protocol: Radiologic exam of the chest. Views: 1 view. COMPARISON: CR (ABDOMEN, ) 01/02/2025 7:49 PM FINDINGS: Tubes, catheters and devices: Interval placement enteric tube with its side port and distal tip noted below the level of the diaphragm in the region of the stomach. Lungs: Unremarkable. No consolidation. Pleural spaces: Unremarkable. No pleural effusion. No pneumothorax. Heart/Mediastinum: Unremarkable. No cardiomegaly. Bones/joints: Unremarkable. Gastrointestinal tract: Redemonstrated dilated loops of small bowel in the mid abdomen are partially visualized compatible with known small bowel obstruction versus ileus. XR/XR chest 1V portable [id number] IMPRESSION: Adequate positioning of NG tube. No other acute interval changes from prior examination. No acute cardiopulmonary abnormality.
[2025-01-02] MEDS: cetacaine Spray 20 gm Can 1 SPRAY TOPICAL (23:13)
[2025-01-02] MEDS: cetacaine Spray 5 gm Can 5 SPRAY (23:13)
[2025-01-02] MEDS: LORazepam 2 mg/mL INJ 1 mL 0.5 MG IVP (23:31)
[2025-01-02] MEDS: heparin 5,000 unit/mL INJ 1 mL 5000 UNIT SUBCUT (23:32)
[2025-01-03] VITALS (10 sets, daily range): BP systolic 104–122; BP diastolic 57–72; PULSE 66–95; RESP 14–18; TEMP 36.6–37.6; O2SAT 89–95; BMI 33.0
[2025-01-03] MEDS: dextrose 5%-sod chloride 0.9% 1,000 ML 75 ML IV ×3 (00:31→23:55)
[2025-01-03 02:58] LABS: Basophils % 0.5 %; Eosinophils # 0.1 10^3/uL (0.0-0.8); Eosinophils % 1.2 %; Hematocrit 36.2 % (36-47); Lymphocytes # 1.8 10^3/uL (0.8-4.8); Mean Corpuscular Hemoglobin 30.4 pg (27-33); Mean Corpuscular Volume 94.8 fl (85-98); Mean Platelet Volume 10.3 fL (7.4-10.4); Monocytes # 0.6 10^3/uL (0.2-0.9); Monocytes % 9.8 %; Neutrophils # 3.38 10^3/uL (1.8-7.7); Neutrophils % 57.2 %; Nucleated Red Blood Cells % 0 %; Platelet Count 173 10^3/cmm (157-399); Red Blood Count 3.82 10^6/uL (3.85-5.65); Red Cell Distribution Width 13.5 % (12.1-15.1); White Blood Count 5.91 10^3/uL (3.29-11.43)
[2025-01-03 03:16] LABS: Anion Gap 13.7 (5-19); Blood Urea Nitrogen 25 mg/dL (8-23); Calcium 8.8 mg/dL (8.5-10.5); Carbon Dioxide 24 mmol/L (22-29); Chloride 105 mmol/L (98-107); Creatinine Clr Calc Pharmacy 43.9528; Glucose 116 mg/dL (65-115); Magnesium 2.2 mg/dL (1.7-2.3); Osmolality Calculated 293 mOsm/kg (285-295); Potassium 3.7 mmol/L (3.5-5.1); Sodium 139 mmol/L (136-145)
--- NOTE | 2025-01-03 06:40 | P.CONIM_ITS ---
Providers/Reason For Consult 2 Consulting Physician/Specialty*: General Surgery Reason for Consult*: Small bowel obstruction Attending Physician: Pebbles Herrera MD Primary Care Provider: CHALREY De La Cruz History of Present Illness History of Present Illness Blaire Reynoso is a 74 year old female who presents to the hospital with abdominal pain, distention and history of previous SBO. Patient has had intra- abdominal operations, last episode of SBO was about 5 years ago and managed conservatively. Patient is feeling better this morning in my evaluation, after NG decompression her symptoms have started to improve but has not passed gas last bowel movement was yesterday. Review of Systems 2 General: Reports: 10 or more systems reviewed and unremarkable except in HPI and below Medications/Allergies Home Medications ?Medication ?Instructions ?Recorded ?Confirmed ?Last Taken ?Type naproxen 500 mg tablet 500 mg PO BID PRN Pain 12/2901/03/25 Unknown History magnesium oxide 400 mg (241.3 mg 400 mg PO DAILY #90 t abs 06/08/24 01/03/25 01/01/25 08:00 Rx magnesium) tablet duloxetine 40 mg capsule,delayed 40 mg PO DAILY #90 ca ps 12/02/24 01/03/25 01/01/25 08:00 Rx release hydroxyzine HCl 25 mg tablet 25 mg PO BID PRN itching #60 tabs 12/02/24 01/03/25 01/01/25 08:00 Rx metoprolol succinate 25 mg 12.5 mg (1/2 x 25 mg) PO DA VIOLETA #45 12/02/24 01/03/25 01/01/25 08:00 Rx tablet,extended release 24 hr tabs omeprazole 40 mg capsule,delayed 40 mg PO DAILY #30 ca ps 12/02/24 01/03/25 01/01/25 08:00 Rx release lidocaine 5 % topical patch 1 patch topical DAILY PRN Pain 01/03/25 01/03/25 Unknown History Allergies Allergy/AdvReac Type Severity Reaction Status Date / Time fluoxetine (From Prozac) Allergy ALGY-Rash Verified 12/09/24 08:49 Current Medications Generic Name Dose Route Start Last Admin Trade Name Freq PRN Reason Stop Dose Admin Heparin Sodium (Porcine) 5,000 unit 01/02/25 22:30 01/02/25 23:32 Heparin 5,000 Unit/Ml Inj 1 Ml SUBCUT 5,000 unit Q12H JUSTIN Administration Dextrose/Sodium Chloride 1,000 mls @ 75 mls/hr 01/02/25 22:30 01/03/25 00:31 Dextrose 5%-Sod Chloride 0.9% IV 01/04/25 09:00 75 mls/hr .[id number] JUSTIN Administration PFSH Acute 2 PFSH: Medical History Essential hypertension Surgical History Hx of exploratory laparotomy Hx of hysterectomy History of esophagogastroduodenoscopy (EGD) x3 Hx of colonoscopy with polypectomy 1st colonoscopy positive polyp 2nd no polyps Hx of cholecystectomy Family History Sister Diabetes Father Cancer melanona Grandmother Cancer stomach cancer Other History of esophagogastroduodenoscopy (EGD) Hx of cholecystectomy Hx of colonoscopy with polypectomy Hx of exploratory laparotomy Hx of hysterectomy Social History Smoking and tobacco/nicotine status: former use of tobacco/nicotine Alcohol intake: former Substance/Drug Use: never Vitals/I&O/Wt Last Vital Signs Temp 98.3 F 01/03/25 04:00 Pulse 77 01/03/25 04:00 Resp 14 01/03/25 04:00 BP 115/72 01/03/25 04:00 Pulse Ox 92 01/03/25 04:00 O2 Del Method Room Air 01/03/25 04:00 O2 Flow Rate 2 01/03/25 02:34 Weight last 48 hrs Weight 192 lb 3.2 oz Weight 185 lb Physical Exam 2 GI: OTHER: Abdomen is mildly distended at this minimally tender and the bowel sounds are decreased Data 01/03/25 02:37 01/03/25 02:37 A&P Assessment and plan (1) SBO (small bowel obstruction): Plan After a complete history, physical examination and review of all available clinical data the following is my assessment. 74-year-old female presenting with a small bowel obstruction likely in the setting of adhesions. Laboratory workup and imaging are unremarkable. On my personal review of imaging I agree there is bowel obstruction, but appears to be partial of there is good amount of gas distally at the level of the rectum. Will continue with decompression over the next 24 hours and tomorrow we will do a Gastrografin trial. Depending on the results of the trial we will decide the next steps. Appreciate management per medical team. PDMP PDMP Reviewed: Not Reviewed Coding Level of Care Code Acute Code for Chg Fwd Diagnoses SBO (small bowel obstruction) K56.609
--- NOTE | 2025-01-03 09:07 | PC.CHAP ---
Pastoral Care Encounter/Spiritual Assessment Type of Contact [] Declined steerer visit [] Patient/Family/Request visit [] Outpatient visit [] Follow-up visit [] Physician referral [] Code/Alert [x] Routine visit [] Staff referral [] Actively dying [] Patient sleeping [] Family support [] [] Out of room [] Palliative care [] [] Receiving care in room [] Pre-surgical visit [] Trauma [] Long length of stay [] ICU visit [] Other: Relational/Emotional Strength [] Patient feels connected with others/family/visitors/staff [] Distress [] Loneliness/isolation [] Abandonment Spirituality of Patient [x] Person of Mansi [x] Attends Yarsani of their Mansi [x] Believes in Prayer [x] Reads Bible or Yazidi materials [] There are Spiritual issues to be addressed Machine Operator Slitter Technician Interventions [x] Prayer [x] Active listening [] Non-anxious presence [] Spiritual/emotional support [] Crisis/trauma care [] Spiritual counseling [] Bereavement support [] Provided bereavement packet [x] Provided Bible/devotional materials [] Provided toy/stuffed animal, coloring book to patient or family member [] Provided Communion [] Anointing/[place] [] Salvation [x] Completed spiritual assessment [] Other: Impact on Illness or Injury [] Angry [] Fearful [] Anxious [] Often cries [] Exhaustion [] Unable to work [] Unable to attend quaker [] Unable to walk/stand [] Unable to read [] Unable to drive [] Unable to eat/drink [] Unable to sleep [] Unable to be with family [] Patient intubated [] Other: Summary Time spent with patient 10 min
[2025-01-03] MEDS: pantoprazole 40 mg SDV IVP ×2 (09:09→16:28)
[2025-01-03] MEDS: heparin 5,000 unit/mL INJ 1 mL 5000 UNIT SUBCUT ×2 (09:47→21:38)
--- NOTE | 2025-01-03 13:46 | PM.MISC ---
Miscellaneous Note Purpose of Documentation: Update on patient care Note: Patient was evaluated this afternoon. No significant issues, no bowel movements or passing gas but NG output has been low probably 100 cc over the last 6 hours. Plan will remain the same, we will do a Gastrografin trial tomorrow morning. I appreciate medical management with IV fluid resuscitation and correction of electrolyte imbalances.
--- NOTE | 2025-01-03 19:22 | P.PN_ITS ---
Subjective 2 Subjective: Noted improvement in abdominal distention. No sig BM or passing gas. Vitals/I&O/Wt Last Vital Signs Temp 97.8 F 01/03/25 16:25 Pulse 75 01/03/25 16:25 Resp 17 01/03/25 16:25 BP 119/62 01/03/25 16:25 Pulse Ox 91 01/03/25 16:25 O2 Del Method Room Air 01/03/25 16:25 O2 Flow Rate 2 01/03/25 02:34 01/03/25 01/03/25 01/03/25 06:59 14:59 22:59 Intake Total 783.75 / 783.75 Output Total 100 / 100 Balance 783.75 / 783.75 -100 / 683.75 Weight last 48 hrs Weight 85.684 kg Weight 87.18 kg Weight 83.915 kg Physical Exam 2 Narrative: Alert, awake, NAD NG tube in place S1, S2 Non-labored mild abd tenderness with decrease bowel sounds Data 01/03/25 02:37 01/03/25 02:37 A&P Assessment and plan (1) Essential hypertension: (2) Palpitation: (3) GERD (gastroesophageal reflux disease): Qualifiers: Esophagitis presence: without esophagitis Qualified Code(s): K21.9 - Gastro-esophageal reflux disease without esophagitis (4) SBO (small bowel obstruction): (5) Dehydration: (6) TERRI (acute kidney injury): Plan Continue IV fluids as ordered Discussed with General surgery today Plan for Gastrografin in a.m. Remain NPO NG to low intermittent suction Continue IV fluids Repeat labs in a.m. Continue DVT prophylaxis PDMP PDMP Reviewed: Not Reviewed Attestations 2 Medical Necessity Statement*: More than 2 midnights anticipated for management of SBO Coding Level of Care Code Acute Code for Chg Fwd Diagnoses Essential hypertension I10 Palpitation R00.2 Gastroesophageal reflux disease without esophagitis K21.9 Esophagitis presence: without esophagitis SBO (small bowel obstruction) K56.609 Dehydration E86.0 TERRI (acute kidney injury) N17.9
[2025-01-03] MEDS: morphine 4 mg/mL SDV 1 mL 2 MG IVP (21:46)
[2025-01-03] MEDS: phenol oral Spray 177 mL 3 SPRAY MUCOUS MEM (23:57)
[2025-01-04] VITALS (8 sets, daily range): BP systolic 106–144; BP diastolic 69–76; PULSE 76–103; RESP 16–18; TEMP 36.4–36.9; O2SAT 91–96; BMI 32.2
[2025-01-04 04:39] LABS: Basophils % 0.5 %; Eosinophils # 0.1 10^3/uL (0.0-0.8); Eosinophils % 1.2 %; Hematocrit 36.1 % (36-47); Lymphocytes # 2.2 10^3/uL (0.8-4.8); Lymphocytes % 35.6 %; Mean Corpuscular HGB Conc 32.4 g/dL (30-55); Mean Corpuscular Volume 95.5 fl (85-98); Mean Platelet Volume 10.1 fL (7.4-10.4); Monocytes # 0.5 10^3/uL (0.2-0.9); Monocytes % 7.6 %; Neutrophils # 3.31 10^3/uL (1.8-7.7); Neutrophils % 54.6 %; Nucleated Red Blood Cells % 0 %; Platelet Count 178 10^3/cmm (157-399); Red Blood Count 3.78 10^6/uL (3.85-5.65); Red Cell Distribution Width 13.5 % (12.1-15.1); White Blood Count 6.06 10^3/uL (3.29-11.43)
[2025-01-04 04:57] LABS: Anion Gap 10.8 (5-19); Blood Urea Nitrogen 17 mg/dL (8-23); Calcium 7.9 mg/dL (8.5-10.5); Carbon Dioxide 25 mmol/L (22-29); Chloride 110 mmol/L (98-107); Creatinine Clr Calc Pharmacy 58.0857; Glucose 104 mg/dL (65-115); Osmolality Calculated 296 mOsm/kg (285-295); Potassium 3.8 mmol/L (3.5-5.1); Sodium 142 mmol/L (136-145)
--- NOTE | 2025-01-04 07:04 | P.PN_ITS ---
Subjective 2 Subjective: Good progression overnight, there was around 400 cc of bilious material on the NG canister. Has passed gas no bowel movement yet. Vitals/I&O/Wt Last Vital Signs Temp 98.1 F 01/04/25 04:00 Pulse 89 01/04/25 04:00 Resp 17 01/04/25 04:00 BP 138/72 01/04/25 04:00 Pulse Ox 91 01/04/25 04:00 O2 Del Method Room Air 01/04/25 04:00 O2 Flow Rate 2 01/03/25 02:34 01/03/25 01/04/25 01/04/25 22:59 06:59 14:59 Intake Total 971.25 / 1755.00 535 / 535 Output Total 100 / 100 300 / 300 Balance -100 / 683.75 971.25 / 1655.00 235 / 235 Weight last 48 hrs Weight 188 lb Weight 188 lb 14.4 oz Weight 192 lb 3.2 oz Weight 185 lb Physical Exam 2 GI: OTHER: Abdomen soft, minimally distended to inspection, there is minimal tenderness to palpation diffuse. Good bowel sounds. Data 01/04/25 04:14 01/04/25 04:14 A&P Assessment and plan (1) SBO (small bowel obstruction): Plan Patient showing adequate progression, did pass some gas, has not had a bowel movement. NG output has been low. We started Gastrografin trial this morning administer the Gastrografin around 6:30 AM we will obtain the first x-ray at noon and after that probably at 6 PM and tomorrow. In the case of the patient having a bowel movement during this time we will get an additional x-ray and probably remove the NG tube. She has been instructed to walk around as much as possible. NG tube will remain clamped. PDMP PDMP Reviewed: Not Reviewed Attestations 2 Medical Necessity Statement*: Patient will require 42 to 72 hours of hospital stays for SBO. Coding Level of Care Code Acute Code for Chg Fwd Diagnoses SBO (small bowel obstruction) K56.609
[2025-01-04] MEDS: pantoprazole 40 mg SDV IVP ×2 (08:52→17:33)
--- NOTE | 2025-01-04 10:41 | XRR_ITS ---
PROCEDURE INFORMATION: Exam: XR Abdomen Exam date and time: 01/04/2025 9:59 AM Age: 74 years old Clinical indication: Abdominal pain; Generalized; Prior surgery; Surgery date: 6+ months; Surgery type: Hysterectomy, exploratory bowel surgery; Additional info: Follow up gastrografin 4 hours TECHNIQUE: Imaging protocol: Radiologic exam of the abdomen. Views: Frontal supine view of the abdomen. 1 View. COMPARISON: CT abdomen pelvis con [id number] 01/02/2025 7:56 PM FINDINGS: Tubes, catheters and devices: Gastric tube terminates in the stomach. Gastrointestinal tract: Gas is present within multiple dilated loops of small bowel but also visible within decompressed distal small bowel. An incomplete or intermittent small bowel obstruction is presumably present. Bones/joints: Unremarkable. XR/XR abdomen 1V* [id number] IMPRESSION: Intermittent or incomplete small bowel obstruction.
[2025-01-04] MEDS: heparin 5,000 unit/mL INJ 1 mL 5000 UNIT SUBCUT ×2 (11:24→22:25)
[2025-01-04] MEDS: morphine 4 mg/mL SDV 1 mL 2 MG IVP (16:15)
[2025-01-04] MEDS: ondansetron 2 mg/ML SDV 2 mL 4 MG IVP (16:16)
--- NOTE | 2025-01-04 16:31 | PM.MISC ---
Miscellaneous Note Purpose of Documentation: Update on patient care Note: Patient was able to have a bowel movement, is passing gas but still somehow distended. The first x-ray after Gastrografin showed evidence of passage of the contrast to the distal small bowel but the still has some proximal distention compatible with a partial SBO. We will continue following the Gastrografin trial if by tomorrow all the contrast in the colon more out of the body we will allow her to transition to p.o. diet.
--- NOTE | 2025-01-04 18:02 | P.PN_ITS ---
Subjective 2 Subjective: Doing well, no new clinical events Vitals/I&O/Wt Last Vital Signs Temp 97.6 F 01/04/25 16:00 Pulse 103 H 01/04/25 16:00 Resp 17 01/04/25 16:15 BP 106/76 01/04/25 16:00 Pulse Ox 94 01/04/25 16:00 O2 Del Method Room Air 01/04/25 16:00 O2 Flow Rate 2 01/03/25 02:34 01/04/25 01/04/25 01/04/25 06:59 14:59 22:59 Intake Total 971.25 / 1755.00 1015 / 1015 Output Total 300 / 300 Balance 971.25 / 1655.00 715 / 715 Weight last 48 hrs Weight 85.275 kg Weight 85.684 kg Weight 87.18 kg Physical Exam 2 Narrative: Alert, awake, NAD NG tube in place S1, S2 Non-labored mild abd tenderness with decrease bowel sounds Data 01/04/25 04:14 01/04/25 04:14 A&P Assessment and plan (1) Essential hypertension: (2) Palpitation: (3) GERD (gastroesophageal reflux disease): Qualifiers: Esophagitis presence: without esophagitis Qualified Code(s): K21.9 - Gastro-esophageal reflux disease without esophagitis (4) SBO (small bowel obstruction): (5) Dehydration: (6) TERRI (acute kidney injury): Plan Continue IV fluids as ordered Discussed with General surgery again today Incomplete SBO noted on gastrografin today Monitor labs Pain control Will keep NPO for now PDMP PDMP Reviewed: Not Reviewed Attestations 2 Medical Necessity Statement*: More than 2 midnights anticipated for management of SBO Coding Level of Care Code Acute Code for Chg Fwd Diagnoses Essential hypertension I10 Palpitation R00.2 Gastroesophageal reflux disease without esophagitis K21.9 Esophagitis presence: without esophagitis SBO (small bowel obstruction) K56.609 Dehydration E86.0 TERRI (acute kidney injury) N17.9
--- NOTE | 2025-01-04 18:11 | XRR_ITS ---
PROCEDURE INFORMATION: Exam: XR Abdomen Exam date and time: 01/04/2025 5:36 PM Age: 74 years old Clinical indication: Condition or disease; Other: Gastro; Additional info: Follow up gastrografin 12 hours TECHNIQUE: Imaging protocol: Radiologic exam of the abdomen. Views: Frontal supine view of the abdomen. 1 View. Other contrast: Oral, gastrografin; COMPARISON: CR XR abdomen 1V* [id number] 01/04/2025 9:59 AM FINDINGS: Tubes, catheters and devices: Enteric feeding tube is present with its distal tip and side port subdiaphragmatic. Right upper quadrant cholecystectomy clips. Gastrointestinal tract: Contrast is seen throughout the large bowel loops and up to the level of the sigmoid. Bones/joints: Unremarkable. XR/XR abdomen 1V* [id number] IMPRESSION: As above.
[2025-01-05] VITALS (8 sets, daily range): BP systolic 117–171; BP diastolic 60–79; PULSE 78–90; RESP 16–18; TEMP 36.4–36.8; O2SAT 92–96; BMI 32.2
[2025-01-05] MEDS: morphine 4 mg/mL SDV 1 mL 2 MG IVP (01:19)
[2025-01-05 05:27] LABS: Basophils % 0.5 %; Eosinophils # 0.1 10^3/uL (0.0-0.8); Eosinophils % 2.3 %; Hematocrit 35.4 % (36-47); Lymphocytes # 2.2 10^3/uL (0.8-4.8); Lymphocytes % 38.6 %; Mean Corpuscular HGB Conc 31.6 g/dL (30-55); Mean Corpuscular Hemoglobin 30.5 pg (27-33); Mean Corpuscular Volume 96.5 fl (85-98); Mean Platelet Volume 9.9 fL (7.4-10.4); Monocytes # 0.5 10^3/uL (0.2-0.9); Monocytes % 8.8 %; Neutrophils # 2.81 10^3/uL (1.8-7.7); Neutrophils % 49.4 %; Nucleated Red Blood Cells % 0 %; Platelet Count 163 10^3/cmm (157-399); Red Blood Count 3.67 10^6/uL (3.85-5.65); Red Cell Distribution Width 13.2 % (12.1-15.1); White Blood Count 5.68 10^3/uL (3.29-11.43)
--- NOTE | 2025-01-05 05:36 | XRR_ITS ---
PROCEDURE INFORMATION: Exam: XR Abdomen Exam date and time: 01/05/2025 5:42 AM Age: 74 years old Clinical indication: Other: 24 hours after gastro; Additional info: 24 hours after gastrografin TECHNIQUE: Imaging protocol: Radiologic exam of the abdomen. Views: Frontal supine view of the abdomen. 1 View. COMPARISON: CR (ABDOMEN, ) 01/04/2025 5:36 PM FINDINGS: Tubes, catheters and devices: Gastric tube terminates in the colon. Mildly dilated loops of small bowel are scattered throughout the abdomen. An intermittent small bowel obstruction is likely. Gastrointestinal tract: See Tubes, catheters and devices finding. Organs: Cholecystectomy. Bones/joints: Unremarkable. XR/XR abdomen 1V* [id number] IMPRESSION: Findings suggesting intermittent small bowel obstruction with persistent dilated small bowel loops but all contrast is now within the colon.
[2025-01-05 05:44] LABS: Alanine Aminotransferase 6 U/L (0-33); Albumin Level 3.4 g/dL (3.5-5.2); Alkaline Phosphatase 82 U/L (35-105); Anion Gap 12.4 (5-19); Aspartate Amino Transferase 13 U/L (0-32); Blood Urea Nitrogen 15 mg/dL (8-23); Carbon Dioxide 23 mmol/L (22-29); Chloride 110 mmol/L (98-107); Globulin 2.5 g/dL (1.3-4.6); Glucose 87 mg/dL (65-115); Osmolality Calculated 294 mOsm/kg (285-295); Potassium 3.4 mmol/L (3.5-5.1); Sodium 142 mmol/L (136-145); Total Bilirubin 0.4 mg/dL (0.15-1.2); Total Protein 5.9 g/dL (6.6-8.7)
[2025-01-05] MEDS: pantoprazole 40 mg SDV IVP ×2 (08:21→17:30)
--- NOTE | 2025-01-05 08:33 | P.PN_ITS ---
Subjective 2 Subjective: Patient doing much better this morning, since yesterday has had multiple bowel movements and is passing more gas. Abdominal distention has improved. No nausea or vomit. Vitals/I&O/Wt Last Vital Signs Temp 98.2 F 01/05/25 07:37 Pulse 90 01/05/25 07:37 Resp 16 01/05/25 07:37 BP 171/79 01/05/25 07:37 Pulse Ox 94 01/05/25 07:37 O2 Del Method Room Air 01/05/25 03:46 O2 Flow Rate 2 01/03/25 02:34 01/04/25 01/05/25 01/05/25 22:59 06:59 14:59 Intake Total 0 / 1015 465 / 1480 Balance 0 / 715 465 / 1180 Weight last 48 hrs Weight 188 lb Weight 188 lb Physical Exam 2 GI: OTHER: Abdominal exam is benign abdomen soft, nontender, minimally distended, there is good bowel sounds which are improved from yesterday. Data 01/05/25 05:04 01/05/25 05:04 A&P Assessment and plan (1) Chronic abdominal pain: (2) SBO (small bowel obstruction): Plan Patient is showing good progression of her partial small bowel obstruction. We did a Gastrografin trial in the last 24 hours, by 24 hours the patient had had multiple bowel movements and all the contrast is in the colon. There is still some mild dilation in the proximal small bowel which comes Pasquale suspicious of a partial SBO. At this point with a positive Gastrografin trial is safe to continue nonoperative management. Her white count has been normal vital signs have been stable. I checked the residual from her stomach this morning and was minimal, the NG tube was removed. Patient will be allowed to have clear liquid diet, we will start her on twice a day MiraLAX. If tolerating clear liquids we will advance her to full liquid diet and allow her to be discharged on a full liquid diet that she will follow-up for the next 2 weeks until I see her in clinic. At that point we will decide to advance to a GI soft diet. I think this will benefit her and allowed her partial obstruction to completely resolve before we overload the system. Patient shows understanding and is agreeable with the plan. I had extensive discussion regarding warning signs, I have informed the patient that if she has any vomiting or worsening of her clinical symptoms she will need to return to the hospital and in that case she most likely will require surgical intervention. She shows understanding agrees. PDMP PDMP Reviewed: Not Reviewed Attestations 2 Medical Necessity Statement*: Per medical team Coding Level of Care Code Acute Code for Chg Fwd Diagnoses Chronic abdominal pain R10.9; G89.29 SBO (small bowel obstruction) K56.609
[2025-01-05] MEDS: heparin 5,000 unit/mL INJ 1 mL 5000 UNIT SUBCUT (09:51)
[2025-01-05] MEDS: polyethylene glycol 3350 Pkt 17 gm PO ×2 (09:51→17:29)
--- NOTE | 2025-01-05 15:33 | PC.SOCIAL ---
IMM updated IMM dated and initialed copy given to patient and copy placed in chart
== END 2025-01-05 18:30 | disposition home or self-care (01) | DRG 389 ==
LOC: ER 22:36 → MEDSURG 23:59
PROVIDERS: Emergency Medicine; Surgery; Admitting Provider Internal Medicine; Emergency Provider Emergency Medicine; PCP Nurse Practitioner Family; Visit Provider Hospitalist
DX: K56.600 Partial intestinal obstruction, unspecified as to cause (principal); N17.9 Acute kidney failure, unspecified; G89.29 Other chronic pain; I10 Essential (primary) hypertension; R00.2 Palpitations; K21.9 Gastro-esophageal reflux disease without esophagitis; E86.0 Dehydration; Z87.891 Personal history of nicotine dependence; Z90.49 Acquired absence of other specified parts of digestive tract; Z90.710 Acquired absence of both cervix and uterus
CPT/HCPCS: 36415; 71045; 74018; 74022; 74176; 80048; 80053; 81001; 83605; 83690; 83735; 85025; 86140; 96372; 96374; 96375; 99285; J1644; J2060; J2270; J2405; J2470; J7042; J9999

== ENCOUNTER → 2025-05-16 12:09 | Outpatient (BNVA) | payer MEDICARE, OTHER, SELFPAY | PROVIDERS: PCP Nurse Practitioner Family; Visit Provider Internal Medicine Cardiovascular Disease | DX: R07.9 Chest pain, unspecified (principal); I49.8 Other specified cardiac arrhythmias; I10 Essential (primary) hypertension; Z87.891 Personal history of nicotine dependence; R94.31 Abnormal electrocardiogram [ECG] [EKG] | CPT/HCPCS: 93005; 99214 ==

== ENCOUNTER 2025-05-31 09:54 | Outpatient (CLI) | payer MEDICARE, OTHER, SELFPAY ==
--- NOTE | 2025-05-31 | ECG_ITS ---
[employer] Test Date: 2025-05-31 Pat Name: Blaire Reynoso Department: Room: Gender: Female Sanitary Engineer: : 1950 Requested By: Olga Savage Order Number: [id number] Saba MD: Olga Savage M.D. Interpretive Statements Lung unchanged pre/post procedure; Intraprocedure shortess of breath; Symptoms resoled by discharge PROCEDURE: At the baseline, the EKG revealed normal sinus rhythm with a poor R wave progression. The baseline heart was 69 bpm with a blood pressue of 133/77 mm of Hg Lexiscan was infused over a period of 20 seconds. A total of 0.4 milligrams of Lexiscan was infused. The stress phase was continued for a total of 5 minutes. Heart rate at the end of the stress phase was 89 bpm with a blood pressure 108/66 mm of Hg. The EKG at the peak infusion revealed no significant changes. Sestamibi was injected 20 seconds after the Lexiscan infusion. Heart rate at the end of the recovery phase was 90 bpm with a blood pressure of 121/66 mm of Hg. CONCLUSION: 1. No significant EKG changes with the LexiScan infusion 2. No LexiScan induced chest pain or cardiac arrhythmia 3. Normal blood pressure and heart rate response 4. Sestamibi/sestamibi perfusion scan pending; see separate report. Electronically Signed On 06-07-2025 10:31:03 CDT by Olga Savage M.D. [email or web address]
[2025-05-31 10:18] VITALS: BMI 30.7
--- NOTE | 2025-05-31 10:20 | NMCV_ITS ---
NM wiliam perf SPECT r/s* [id number] Blaire Reynoso Age: 75 Gender: F : 1950 Exam Date: 05/31/2025 11:13 Ordering Phys: Olga Savage MD ([email or web address]) Technologist: STAN Betts Exam Location: [facility] Indications: cp STRESS TEST Please see separate stress test report in [facility] for full findings IMAGE PROTOCOL Rest/Stress 1 Lexiscan Day Radiopharmaceutical Dose (mCi) Administration Site Administered by Rest: Tc-99m 11 IV STAN Betts Sestamibi Stress:Tc-99m 32.3 IV Yulissa Londono BLOCK CLEANER Sestamibi Rest: 31-May-2025 60 Discovery 630 Stress: 31-May-2025 30 Discovery 630 0.4mg Lexiscan. Images obtained in supine and prone position. SPECT RESULTS Technical Quality: Good Raw Data Analysis: Normal Image Corrections: No attenuation or motion correction applied Summed Stress Score: 0 Summed Rest Score: 1 Summed Difference Score: 0 PERFUSION FINDINGS Fairly uniform myocardial tracer uptake with no significant perfusion normalities FUNCTIONAL RESULTS (calculated via Gated SPECT) Stress Image LV EF (%): 71 Stress EDV (mL):97 TID: 1.1 Stress ESV (mL):28 FUNCTIONAL FINDINGS: Segmental wall motion analysis revealing no gross wall motion abnormalities. IMPRESSIONS 1. Myocardial perfusion imaging revealing fairly uniform myocardial tracer uptake with no significant perfusion abnormalities 2. Normal LV ejection fraction 71%. 3. LV wall motion analysis revealing no gross wall motion abnormalities. 4. Normal LV volume Low probability for coronary ischemia, based on the above findings Dr Olga Savage MD FACC (Electronically Signed) Final Date: 31 May 2025 13:50 S
[2025-05-31 11:58] VITALS: BP 121/66; PULSE 91
== END 2025-05-31 09:55 | disposition home or self-care (01) ==
LOC: CDL 09:56
PROVIDERS: PCP Nurse Practitioner Family; Visit Provider Internal Medicine Cardiovascular Disease
DX: R07.9 Chest pain, unspecified (principal); I49.8 Other specified cardiac arrhythmias; R94.31 Abnormal electrocardiogram [ECG] [EKG]
CPT/HCPCS: 36415; 78452; 93017; 96374; A9500; J2785

== ENCOUNTER → 2025-07-29 11:24 | Outpatient (BNVA) | payer MEDICARE, OTHER, SELFPAY | PROVIDERS: PCP Nurse Practitioner Family; Visit Provider Internal Medicine | DX: R49.0 Dysphonia (principal); L65.9 Nonscarring hair loss, unspecified; K14.6 Glossodynia; R63.5 Abnormal weight gain; E07.9 Disorder of thyroid, unspecified; D22.9 Melanocytic nevi, unspecified | CPT/HCPCS: 36415; 82607; 82627; 83516; 83540; 84207; 84403; 84439; 84443; 85025; 86376; 86800 ==

== ENCOUNTER 2025-08-15 12:10 | Outpatient (CLI) | payer MEDICARE, OTHER, SELFPAY ==
--- NOTE | 2025-08-15 12:15 | USR_ITS ---
PROCEDURE INFORMATION: Exam: US Soft Tissue Head and Neck, Thyroid Exam date and time: 08/15/2025 12:17 PM Age: 75 years old Clinical indication: Other: Hoarsenss; Additional info: Hoarseness, include TECHNIQUE: Imaging protocol: Real-time ultrasound scan of the neck with image documentation. Exam focused on the thyroid. COMPARISON: No relevant prior studies available. FINDINGS: The right lobe measures 3.6 x 1.2 x 1.1 cm. The left lobe measures 3.8 x 1.2 x 1.1 cm. The isthmus measures 2 mm in thickness. Thyroid architecture is slightly heterogeneous. There is a spongiform nodule in the lower pole of the right lobe measuring 1.0 x 0.9 x 0.6 cm. TR 1 benign. No other nodules are seen. US/US thyroid [id number] tirads IMPRESSION: No significant findings. No follow-up is needed based on findings and TI-RADS recommendations.
== END 2025-08-15 12:11 | disposition home or self-care (01) ==
LOC: RAD 12:10
PROVIDERS: PCP Nurse Practitioner Family; Visit Provider Internal Medicine
DX: R49.0 Dysphonia (principal); L65.9 Nonscarring hair loss, unspecified; K14.6 Glossodynia; R63.5 Abnormal weight gain
CPT/HCPCS: 76536

== ENCOUNTER 2025-08-18 13:13 | Outpatient (CLI) | payer MEDICARE, OTHER, SELFPAY ==
--- NOTE | 2025-08-18 13:19 | MM_ITS ---
WS: [id number] BILATERAL SCREENING DIGITAL TOMOSYNTHESIS MAMMOGRAM WITH CAD HISTORY: SCREENING COMPARISON: 11/14/2022, 05/30/2021, 01/14/2019, 02/22/2015 Bilateral CC and MLO views with tomosynthesis and synthetic mammography submitted. Computer aided detection analyzed. Breast composition: There are scattered areas of fibroglandular density. No suspicious masses, microcalcifications or architectural distortion. Numerous scattered asymmetries and densities within each breast are stable over multiple prior years. Benign calcifications are identified within each breast. MM/MM [facility] tomosynthesis [id number] IMPRESSION: BI-RADS: 2 - Benign. FOLLOW UP: 1 Year Follow-up
== END 2025-08-18 13:14 | disposition home or self-care (01) ==
LOC: RAD 13:13
PROVIDERS: PCP Nurse Practitioner Family; Visit Provider Nurse Practitioner Family
DX: Z12.31 Encounter for screening mammogram for malignant neoplasm of breast (principal); R92.323 Mammographic fibroglandular density, bilateral breasts; N64.89 Other specified disorders of breast; R92.1 Mammographic calcification found on diagnostic imaging of breast
CPT/HCPCS: 77063; 77067

== ENCOUNTER → 2025-08-23 13:21 | Outpatient (BNVA) | payer MEDICARE, OTHER, SELFPAY | PROVIDERS: PCP Nurse Practitioner Family; Visit Provider Internal Medicine Endocrinology, Diabetes & Metabolism | DX: E04.1 Nontoxic single thyroid nodule (principal); Z09 Encounter for follow-up examination after completed treatment for conditions other than malignant neoplasm | CPT/HCPCS: 99204 ==